=== PATIENT | female | born 1960 | race Caucasian/White ===

== ENCOUNTER → 2018-08-05 | Day surgery (SDC) | payer BC ==
[~2018-08-05] VITALS: Ht 154.9 cm; Wt 69.1 kg
[2018-08-05] VITALS (8 sets, daily range): BP systolic 113–133; BP diastolic 62–81; PULSE 62–78; RESP 16–24; Ht 154.9 cm; Wt 69.1 kg
[~2018-08-05] MED LIST: BUPIVACAINE 0.25% (MPF) 30 ML INJ ONE; BUPIVACAINE 0.25%/EPI (SDV) 30 ML INJ ONE; CEFAZOLIN 1 GM INJ ONE; CEFAZOLIN 2 GM/50 ML (PMX) 50 ML IVPB ONE; EPHEDrine 25 MG/5 ML SYG IV PRN; FENTAnyl 50 MCG/ML VIAL IV PRN; HYDROCODONE/APAP (5/325) TAB PO ONE; HYDROmorphONE 1 MG/5 ML IV SYRINGE IV PRN; LABETALOL HCL 20MG INJ IV PRN; LIDOCAINE 1% (MPF) 30 ML INJ ONE; ONDANSETRON 4 MG INJ IV PRN; OXYCODONE/ACETAMINOPHEN (5/325) TAB PO PRN; SOD CHLORIDE 0.9% 1,000 ML IV ONE
--- NOTE | 2018-08-05 10:28 | PREAC ---
Date/Time of Note Date/Time of Note DATE: 08/05/18 TIME: 10:26 Anesthesia Eval and Record Evaluation Time Pre-Procedure Interview DATE: 08/05/18 TIME: 10:26 Age 58 Sex female NPO: 8 hrs Preoperative diagnosis Left Shoulder mass Planned procedure Excision of Shoulder Mass Left Past Medical History Past Medical History: None Surgery & Anesthesia Issues No known issue Meds Anticoagulation: No Beta Dre within 24 hr: No Reason Beta Dre not given: Pt. not on B-Dre No Active Prescriptions or Reported Meds Current Medications Sodium Chloride 1,000 ml @ 75 mls/hr [id number] ONCE IV ; Start 08/05/18 at 08:30; Stop 08/05/18 at 21:49 Meds reviewed: Yes Allergies Coded Allergies: No Known Allergy (Unverified , 08/05/18) Allergies Reviewed: Yes Labs/Studies Labs Reviewed: Reviewed by anesthesiologist Result Diagram: 08/05/18 0835 08/05/18 0835 Laboratory Tests 08/05/18 08:35 test: N/A Studies: ECG (n/a), CXR (n/a) Pre-procedure Exam Last vitals Vital Signs Date Temp Pulse Resp B/P (MAP) Pulse Ox O2 O2 Flow FiO2 Time Delivery Rate 08/05/18 97.9 78 16 133/78 100 Room Air 09:06 (96) Airway: Adequate mouth opening, Adequate thyromental dist Mallampati: Mallampati II Teeth: Normal Lung: Normal Heart: Normal ASA Physical Status ASA physical status: 2 Emergency: None Planned Anesthetic General/MAC: MAC Planned Pain Management Parenteral pain med Pre-operative Attestations Prior to commencing anesthesia and surgery, the patient was re-evaluated, there was verification of: *The patient's identity *The results of appropriate recent lab work and preoperative vital signs *The above evaluation not changing prior to induction *Anesthetic plan, risk benefits, alternative and complications discussed with patient/family; questions answered; patient/family understands, accepts and wishes to proceed. SANDY LENNON MD August 05, 2018 10:28
--- NOTE | 2018-08-05 10:57 | OPR ---
Date/Time of Note Date/Time of Note DATE: 08/05/18 TIME: 10:54 Operative Report Procedure Date: August 05, 2018 Preoperative Diagnosis left shoulder mass Postoperative Diagnosis same Operation/Procedure Performed 1. excision of left shoulder mass 3 cm mass 3 cm incision 2. localized adjacent tissue transfer with the use of skin flaps 6 sq cm defect 3. 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 She required surgical excision of her left shoulder mass. Risks alternatives benefits and personally discussed the patient. Patient expressed understanding and consents to the operation. Procedure Description Patient is taken to the OR and prepped and draped in usual sterile fashion. Surgical time was performed. IV antibiotics given. Therapeutic subcutaneous local anesthesia was injected at the incision site. Elliptical incision was made with a 15 blade around the left shoulder mass. Dissection with cautery skin onto the mass and the mass was circumferentially excised. Good hemostasis status. Due to tissue defect localized adjacent to his transfer with use of skin flaps was performed. Multilayer closed with interrupted 3-0 Vicryl and skin swathi. Dry dressings were applied. Andrea EGAN August 05, 2018 10:57
--- NOTE | 2018-08-05 10:58 | PAC ---
Date/Time of Note Date/Time of Note DATE: 08/05/18 TIME: 10:58 Post-Anesthesia Notes Post-Anesthesia Note Last documented vital signs Vital Signs Date Temp Pulse Resp B/P (MAP) Pulse Ox O2 O2 Flow FiO2 Time Delivery Rate 08/05/18 97.9 78 16 133/78 100 Room Air 11:06 (96) Activity: WNL Respiratory function: WNL Cardiovascular function: WNL Mental status: Baseline Pain reasonably controlled: Yes Hydration appropriate: Yes Nausea/Vomiting absent: Yes SANDY LENNON MD August 05, 2018 10:58
--- NOTE | 2018-08-05 21:47 | RADRPT ---
Vent Rate: 71 bpm RR Interval: 840 msec VT Interval: 117 msec QRS Duration: 84 msec QT Interval: 404 msec QTC Interval: 441 msec P-R-T [place]: 25 - 31 - 47 degrees Sinus rhythm...normal P axis, V-rate 50- 99 Electronically Signed By: Jordan Alonzo
== END | disposition home or self-care (01) ==
LOC: SDS 06:57
PROVIDERS: ATTEND Surgery
DX: D21.12 Benign neoplasm of connective and other soft tissue of left upper limb, including shoulder (principal); R94.31 Abnormal electrocardiogram [ECG] [EKG]
CPT/HCPCS: 14000; 71045; 80053; 85025; 85610; 85730; 93005; J0690; Z7610; 88307